=== PATIENT | female | born 1970 | race Caucasian/White ===

== ENCOUNTER → 2016-12-28 | Outpatient (CLI) | payer OTHER ==
[~2016-12-28] MED LIST: ATV/1 PO; BUSP15TA70 PO; BUSP1TAB46 PO; LORA-741 PO; SUMA50TA15 PO; SUMA5SPR5
[2016-12-28 17:36] LABS: MANUAL MICROSCOPIC REQUIRED? NO; REVIEW REQ? NO; URINE APPEARANCE CLEAR (CLEAR); URINE BILIRUBIN NEG (NEG); URINE COLOR YELLOW; URINE NITRITE NEG (NEG); URINE PH 7.5 (4.5-7.5); URINE SPECIFIC GRAVITY 1.015 (1.000-1.030); UROBILINOGEN NEG (NEG)
== END | disposition home or self-care (01) ==
LOC: C.LABBFT 13:48
PROVIDERS: ATTEND Internal Medicine
DX: R39.9 Unspecified symptoms and signs involving the genitourinary system (principal)

== ENCOUNTER → 2017-03-02 | Outpatient (CLI) | payer OTHER ==
[2017-03-02 16:46] LABS: HEMATOCRIT 37.6 % (37-47); MEAN CELL VOLUME 83.4 fL (80-100); MEAN CORPUSCULAR HEMOGLOBIN 26.8 pg (25-34); MEAN CORPUSCULAR HGB CONC 32.2 g/dl (32-36); PLATELET COUNT 336 K/uL (130-400); RED BLOOD COUNT 4.51 M/uL (4.2-5.4); WHITE BLOOD COUNT 9.85 K/uL (4.8-10.8)
[2017-03-02 17:04] LABS: ALT/SGPT 19 U/L (12-78); AST/SGOT 14 U/L (15-37); BLOOD UREA NITROGEN 17 mg/dl (7-18); BUN/CREATININE RATIO 24.4 (10-20); CALCIUM 8.7 mg/dl (8.5-10.1); CARBON DIOXIDE 27 mmol/L (21-32); CHLORIDE 107 mmol/L (98-107); CHOLESTEROL 191 mg/dl (0-200); GLUCOSE 126 mg/dl (70-99); POTASSIUM 3.7 mmol/L (3.5-5.1); SODIUM 140 mmol/L (136-145)
[2017-03-02 17:15] LABS: ALKALINE PHOSPHATASE 66 U/L (45-117); CHOLESTEROL/HDL RATIO 4.1; HDL CHOLESTEROL 47 mg/dl; LDL CHOLESTEROL CALCULATED 116 mg/dl; TRIGLYCERIDES 140 mg/dl (0-150); VERY LOW DENSITY LIPOPROT CALC 28 mg/dl
== END | disposition home or self-care (01) ==
LOC: C.LABBFT 14:19
PROVIDERS: ATTEND Physician Assistant Medical
DX: R53.83 Other fatigue (principal); Z11.59 Encounter for screening for other viral diseases; Z13.6 Encounter for screening for cardiovascular disorders

== ENCOUNTER 2017-08-21 14:50 | Emergency (ER) | payer OTHER ==
[~2017-08-21] VITALS: Ht 160 cm; Wt 66.3 kg
[~2017-08-21 14:50] MED LIST changes: -ATV/1 PO; -BUSP15TA70 PO; -BUSP1TAB46 PO; -SUMA5SPR5
[2017-08-21 14:55] VITALS: TEMP 36.9; Ht 160 cm; Wt 66.3 kg
[2017-08-21] MEDS ORDERED: PROCHLORPERAZINE 5 MG/ML 2 ML VIAL IV STA (15:05)
[2017-08-21] MEDS ORDERED: DiphenhydrAMINE HCL 50 MG/ML VIAL IV STA (15:05)
[2017-08-21] MEDS ORDERED: DEXAMETHASONE SOD INJ 4 MG/ML VIAL IV STA (15:05)
[2017-08-21] MEDS ORDERED: KETOROLAC TROMETHAMINE 30 MG/ML VIAL IV STA (15:05)
[2017-08-21 15:38] LABS: BASO % 0.1 %; BASO ABS # 0.02 K/uL (0-0.2); COMPLETE YES; EOS % 0.1 %; HEMATOCRIT 34.1 % (37-47); IG% 0.2 %; LYMPH % 8.1 %; LYMPH ABS # 1.29 K/uL (1.2-3.4); MEAN CELL VOLUME 82.2 fL (80-100); MEAN CORPUSCULAR HGB CONC 32.8 g/dl (32-36); MEAN PLATELET VOLUME 10.2 fL (7.4-10.4); MONO % 5.4 %; NEUT % 86.1 %; PLATELET COUNT 300 K/uL (130-400); RED BLOOD COUNT 4.15 M/uL (4.2-5.4); WHITE BLOOD COUNT 15.99 K/uL (4.8-10.8)
[2017-08-21 15:58] LABS: BUN/CREATININE RATIO 21.4 (10-20); CALCIUM 8.9 mg/dl (8.5-10.1); CREATININE 0.62 mg/dl (0.60-1.20); POTASSIUM 3.6 mmol/L (3.5-5.1)
--- NOTE | 2017-08-21 16:05 | DIAGNOSTIC IMAGING REPORT ---
HEAD WITHOUT CONTRAST (CT) CLINICAL HISTORY: 46 years-old Female presenting with Evaluate for hemorrhage or pathology, headache. TECHNIQUE: Multidetector CT imaging of the head was performed without the use of intravenous contrast. IV contrast: None. A dose lowering technique was used consistent with the principles of ALARA (as low as reasonably achievable). COMPARISON: None. CT DOSE (mGy.cm): The estimated cumulative dose is 537.48 mGy.cm. FINDINGS: [employer] topogram: Unremarkable. Acute subarachnoid hemorrhage in the suprasellar cistern with extension into the prepontine and interpeduncular regions. This may have a slight predilection for the right side in the region of the right carotid terminus. No parenchymal hematoma. Ventricles and sulci normal in size. Brain parenchyma normal in appearance with preserved spain-white differentiation. No mass effect or midline shift. No acute territorial infarct. Paranasal sinuses and mastoid air cells clear. Calvarium intact. IMPRESSION: 1. Acute subarachnoid hemorrhage in the suprasellar cistern. In the absence of trauma, this is highly suspicious for ruptured aneurysm in the region of the [place], possibly in the region of the right carotid terminus. Further evaluation with CTA of the head and/or angiography recommended. 2. These critical findings were discussed with Dr. Muro by Dr. Salinas at 4:00 PM on 08/21/2017. Electronically signed by: Rafy Salinas M.D. 08/21/2017 4:03 PM Dictated Date/Time: 08/21/2017 3:57 PM
[2017-08-21] MEDS ORDERED: BUSP15TA70 PO (16:11)
[2017-08-21] MEDS ORDERED: SUMA5SPR5 (16:11)
[2017-08-21] MEDS ORDERED: ATV/1 PO (16:11)
[2017-08-21] MEDS ORDERED: BUSP1TAB46 PO (16:11)
--- NOTE | 2017-08-21 16:26 | DIAGNOSTIC IMAGING REPORT ---
CHEST ONE VIEW PORTABLE CLINICAL HISTORY: Headache. COMPARISON STUDY: No previous studies for comparison. FINDINGS: Lung volumes are normal. Lungs are clear. No pneumothorax or pleural effusion is present. Pulmonary vascularity is normal. Cardiomediastinal silhouette is normal. IMPRESSION: No acute cardiopulmonary findings. Electronically signed by: Santy Archibald M.D. 08/21/2017 4:24 PM Dictated Date/Time: 08/21/2017 4:23 PM
[2017-08-21] MEDS ORDERED: OPTIRAY 320 IV PRN (16:30)
[2017-08-21] MEDS ORDERED: NIMODIPINE 30 MG CAP PO STA (16:34)
[2017-08-21] MEDS ORDERED: LORAZEPAM 2 MG/ML 1 ML VIAL IV STA (16:41)
--- NOTE | 2017-08-21 17:11 | DIAGNOSTIC IMAGING REPORT ---
HEAD ANGIO WITH CONTRAST CLINICAL HISTORY: 46 years-old Female presenting with subarachnoid hemorrhage, concern for aneurysm. TECHNIQUE: Multidetector CT angiography of the head was performed after the administration of intravenous contrast. 3-D volumetric and/or maximum intensity projection (MIP) images were subsequently reconstructed for review. IV contrast: 93 mL of Optiray 320. A dose lowering technique was used consistent with the principles of ALARA (as low as reasonably achievable). COMPARISON: CT head performed earlier the same day. CT DOSE (mGy.cm): The estimated cumulative dose is 272.45 mGycm. FINDINGS: Bee Tender topogram: Unremarkable. 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 The aneurysm appears to have a narrow neck measuring approximately 1 mm and has a neck to dome height of 3 mm (series 2 image 47). There may be a blister aneurysm arising from the posterior aspect of the right carotid terminus (series 2 image 46 and 47). This measures 1 to 2 mm in height. Although the right posterior communicating artery is not well visualized, this could alternatively represent an infundibulum. No other aneurysm is evident. Overall image quality is slightly degraded by the timing of the contrast bolus with venous opacification. Anterior circulation otherwise demonstrates patent intracranial portions of the internal carotid arteries, anterior and middle cerebral arteries, and anterior communicating artery. The posterior circulation demonstrates codominant vertebral arteries, which contribute to the basilar artery. Bilateral posterior inferior cerebellar, superior cerebellar, and posterior cerebral arteries patent. Anterior inferior cerebellar arteries not well visualized. Posterior indicating artery is also not well visualized. Cortical veins and dural venous sinuses patent. IMPRESSION: 1. 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 Electronically signed by: Rafy Salinas M.D. 08/21/2017 5:10 PM Dictated Date/Time: 08/21/2017 4:59 PM
[2017-08-21] MEDS ORDERED: LORAZEPAM 1 MG TAB SL STA (17:47)
--- NOTE | 2017-08-21 17:57 | EMERGENCY ROOM VISIT NOTE ---
History Report prepared by Rafita: Christina Oliver Under the Supervision of: Dr. Jorje Muro D.O. First contact with patient: 15:01 Chief Complaint: HEADACHE Stated Complaint: NECK AND SPINE PAIN History of Present Illness The patient is a 46 year old female who presents to the Emergency Room with complaints of a worsening headache for the past 2.5 hours. The patient was taking a shower this afternoon when she started to develop a migraine headache. She has a history of migraines. She states that her pain started to radiate down her neck, into her back, and across her shoulders. She states that this is not typical of her migraines headaches. She felt like she was going to pass out of from the pain. She states, "I couldn't see straight." The patient rates her current pain as a 10/10 in severity. She is also experiencing nausea. She did not take her Imitrex POLE MAKER. Source of History: patient Onset: 2.5 hours Position: head Symptom Intensity: 10/10 Quality: other (radiating) Timing: worsening Associated Symptoms: + neck pain, + nausea, + back pain Review of Systems See HPI for pertinent positives & negatives. A total of 10 systems reviewed and were otherwise negative. Past Medical & Surgical Medical Problems: (1) Anxiety disorder, unspecified (2) Migraine (3) Opioid dependence in remission Family History Patient reports no known family medical history. Social History Smoking Status: Current Every Day Smoker Marital Status: single Housing Status: lives with family Occupation Status: employed Current/Historical Medications Scheduled Buspirone Hcl (Buspirone Hcl), 7.5 MG PO BID Lorazepam (Ativan), 1 MG PO Q6H Scheduled PRN Sumatriptan (Imitrex), 1 SPRAY NA UD PRN for Migraine Sumatriptan Succinate (Imitrex), 50 MG PO UD PRN for Migraine Allergies Coded Allergies: Sulfa Drugs (Unverified Allergy, Mild, 09/21/15) Uncoded Allergies: OPIATES (Allergy, Unknown, Unknown, 08/21/17) PT only stated that Opiates are bad for her Physical Exam Vital Signs Date Time Temp Pulse Resp B/P (MAP) Pulse Ox O2 Delivery O2 Flow Rate FiO2 08/21/17 17:41 87 16 127/65 97 Room Air 08/21/17 17:12 76 159/82 99 Room Air 08/21/17 16:52 78 168/89 98 Room Air 08/21/17 16:28 81 150/85 97 Room Air 08/21/17 14:55 36.9 89 18 138/99 99 Room Air Physical Exam VITAL SIGNS: were reviewed as above. GENERAL:Non-toxic in appearance. SKIN: Warm dry and pink. HEAD: Normocephalic and atraumatic. OROPHARYNX: Is clear and moist NECK: Supple without lymphadenopathy or meningismus. LUNGS: clear. HEART: Regular rate and rhythm. ABDOMEN: Soft and nontender. EXTREMITIES: Warm and well perfused. NEUROLOGICALLY: Awake alert and oriented without focal deficit. Cranial nerves 2 -12 are intact. There is no pronator drift. Cerebellar testing is within normal limits. There is no nystagmus. There is no facial droop. Speech is clear. Vision is grossly normal. MUSCULOSKELETAL: Good muscle tone. No evidence of trauma. Medical Decision & Procedures ER Provider Diagnostic Interpretation: Radiology results as stated below per my review and radiologist interpretation: HEAD WITHOUT CONTRAST (CT) CLINICAL HISTORY: 46 years-old Female presenting with Evaluate for hemorrhage or pathology, headache. TECHNIQUE: Multidetector CT imaging of the head was performed without the use of intravenous contrast. IV contrast: None. A dose lowering technique was used consistent with the principles of ALARA (as low as reasonably achievable). COMPARISON: None. CT DOSE (mGy.cm): The estimated cumulative dose is 537.48 mGy.cm. FINDINGS: Hospitality Specialist topogram: Unremarkable. Acute subarachnoid hemorrhage in the suprasellar cistern with extension into the prepontine and interpeduncular regions. This may have a slight predilection for the right side in the region of the right carotid terminus. No parenchymal hematoma. Ventricles and sulci normal in size. Brain parenchyma normal in appearance with preserved spain-white differentiation. No mass effect or midline shift. No acute territorial infarct. Paranasal sinuses and mastoid air cells clear. Calvarium intact. IMPRESSION: 1. Acute subarachnoid hemorrhage in the suprasellar cistern. In the absence of trauma, this is highly suspicious for ruptured aneurysm in the region of the [place], possibly in the region of the right carotid terminus. Further evaluation with CTA of the head and/or angiography recommended. 2. These critical findings were discussed with Dr. Muro by Dr. Salinas at 4:00 PM on 08/21/2017. Electronically signed by: Rafy Salinas M.D. 08/21/2017 4:03 PM Dictated Date/Time: 08/21/2017 3:57 PM CHEST ONE VIEW PORTABLE CLINICAL HISTORY: Headache. COMPARISON STUDY: No previous studies for comparison. FINDINGS: Lung volumes are normal. Lungs are clear. No pneumothorax or pleural effusion is present. Pulmonary vascularity is normal. Cardiomediastinal silhouette is normal. IMPRESSION: No acute cardiopulmonary findings. Electronically signed by: Santy Archibald M.D. 08/21/2017 4:24 PM Dictated Date/Time: 08/21/2017 4:23 PM HEAD ANGIO WITH CONTRAST CLINICAL HISTORY: 46 years-old Female presenting with subarachnoid hemorrhage, concern for aneurysm. TECHNIQUE: Multidetector CT angiography of the head was performed after the administration of intravenous contrast. 3-D volumetric and/or maximum intensity projection (MIP) images were subsequently reconstructed for review. IV contrast: 93 mL of Optiray 320. A dose lowering technique was used consistent with the principles of ALARA (as low as reasonably achievable). COMPARISON: CT head performed earlier the same day. CT DOSE (mGy.cm): The estimated cumulative dose is 272.45 mGycm. FINDINGS: Hospitality Specialist topogram: Unremarkable. 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 The aneurysm appears to have a narrow neck measuring approximately 1 mm and has a neck to dome height of 3 mm (series 2 image 47). There may be a blister aneurysm arising from the posterior aspect of the right carotid terminus (series 2 image 46 and 47). This measures 1 to 2 mm in height. Although the right posterior communicating artery is not well visualized, this could alternatively represent an infundibulum. No other aneurysm is evident. Overall image quality is slightly degraded by the timing of the contrast bolus with venous opacification. Anterior circulation otherwise demonstrates patent intracranial portions of the internal carotid arteries, anterior and middle cerebral arteries, and anterior communicating artery. The posterior circulation demonstrates codominant vertebral arteries, which contribute to the basilar artery. Bilateral posterior inferior cerebellar, superior cerebellar, and posterior cerebral arteries patent. Anterior inferior cerebellar arteries not well visualized. Posterior indicating artery is also not well visualized. Cortical veins and dural venous sinuses patent. IMPRESSION: 1. 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 Electronically signed by: Rafy Salinas M.D. 08/21/2017 5:10 PM Dictated Date/Time: 08/21/2017 4:59 PM Laboratory Results 08/21/17 15:20 Red Blood Count 4.15, Mean Corpuscular Volume 82.2, Mean Corpuscular Hemoglobin 27.0, Mean Corpuscular Hemoglobin Concent 32.8, Mean Platelet Volume 10.2, Neutrophils (%) (Auto) 86.1, Lymphocytes (%) (Auto) 8.1, Monocytes (%) (Auto) 5.4, Eosinophils (%) (Auto) 0.1, Basophils (%) (Auto) 0.1, Neutrophils # (Auto) 13.78, Lymphocytes # (Auto) 1.29, Monocytes # (Auto) 0.86, Eosinophils # (Auto) 0.01, Basophils # (Auto) 0.02 08/21/17 15:20 Test 08/21/17 15:20 White Blood Count 15.99 K/uL (4.8-10.8) Red Blood Count 4.15 M/uL (4.2-5.4) Hemoglobin 11.2 g/dL (12.0-16.0) Hematocrit 34.1 % (37-47) Mean Corpuscular Volume 82.2 fL (80-100) Mean Corpuscular Hemoglobin 27.0 pg (25-34) Mean Corpuscular Hemoglobin Concent 32.8 g/dl (32-36) Platelet Count 300 K/uL (130-400) Mean Platelet Volume 10.2 fL (7.4-10.4) Neutrophils (%) (Auto) 86.1 % Lymphocytes (%) (Auto) 8.1 % Monocytes (%) (Auto) 5.4 % Eosinophils (%) (Auto) 0.1 % Basophils (%) (Auto) 0.1 % Neutrophils # (Auto) 13.78 K/uL (1.4-6.5) Lymphocytes # (Auto) 1.29 K/uL (1.2-3.4) Monocytes # (Auto) 0.86 K/uL (0.11-0.59) Eosinophils # (Auto) 0.01 K/uL (0-0.5) Basophils # (Auto) 0.02 K/uL (0-0.2) RDW Standard Deviation 43.0 fL (36.4-46.3) RDW Coefficient of Variation 14.2 % (11.5-14.5) Immature Granulocyte % (Auto) 0.2 % Immature Granulocyte # (Auto) 0.03 K/uL (0.00-0.02) Anion Gap 11.0 mmol/L (3-11) Est Creatinine Clear Calc Drug Dose 104.8 ml/min Estimated GFR () 126.2 Estimated GFR (Non- 108.9 BUN/Creatinine Ratio 21.4 (10-20) Calcium Level 8.9 mg/dl (8.5-10.1) Laboratory results as stated above per my review. Medications Administered Medications (Trade) Dose Ordered Sig/Dane Route Start Time Stop Time Status Last Admin Dose Admin Ketorolac Tromethamine (Toradol Inj) 30 mg NOW STAT IV 08/21/17 15:05 08/21/17 15:08 DC 08/21/17 15:30 30 MG Prochlorperazine Edisylate (Compazine Inj) 10 mg NOW STAT IV 08/21/17 15:05 08/21/17 15:08 DC 08/21/17 15:33 10 MG Diphenhydramine HCl (Benadryl Inj) 25 mg NOW STAT IV 08/21/17 15:05 08/21/17 15:08 DC 08/21/17 15:29 25 MG Dexamethasone Sodium Phosphate (Decadron Inj) 10 mg NOW STAT IV 08/21/17 15:05 08/21/17 15:08 DC 08/21/17 15:31 10 MG Nimodipine (Nimotop Cap) 60 mg NOW STAT PO 08/21/17 16:34 08/21/17 16:35 DC 08/21/17 16:55 60 MG ED Course 1501: Previous medical records were reviewed. The patient was evaluated in room B7. A complete history and physical examination was performed. 1505: Decadron 10 mg IV, Benadryl 25 mg IV, Compazine 10 mg IV, Toradol 30 mg IV 1559: I discussed the patient's radiology results with Dr. Salinas of radiology. 1605: I called [facility] at this time. I requested to speak with neurosurgery and am waiting for a call back. 1612: At this time I spoke with Dr. Hammond, the process tech. We discussed the patient's case. He recommended CTA and accepted the patient for transfer to their facility. 1634: Nimodipine 60 mg PO 1641: Ativan 1 mg IV Medical Decision Differential includes: Acute intracranial bleed, trauma, meningitis, encephalitis, increased intracranial pressure, mass or mass effect, facial or dental infection, temporal arteritis, CVA, TIA, acute hypertensive emergency, sinusitis, and carbon monoxide exposure. This is a 46-year-old female who presents to the ED with a chief complaint of a bad headache. The patient reports that she has had a headache for the past 4 days. She reports that she doesn't a history of migraines. She normally takes Imitrex and has tried her Imitrex over the past couple of days. Her symptoms seem to improve somewhat until today while she was taking a shower. She bent over and suddenly had a severe headache that radiated down her neck. She had some associated nausea and vomited here once during her ED stay. The patient reports that this is different than her previous migraine headaches. She is not had any fevers or chills or trauma. Her vital signs are normal. Her physical exam was unremarkable. She does not appear to be in much distress. She is awake, alert and oriented. The patient does report taking Motrin daily for her headache over the past several days. CT scan of the brain reveals findings concerning for subarachnoid hemorrhage. Blood work was unremarkable including a CBC and PRP. Chest x-ray was negative for acute disease. I spoke with Dr. Hammond from [facility] intensive care unit for transfer. They recommended a CT scan angiogram of the head and are working on a bed. CT angiogram revealed a 3 mm aneurysmal changes as noted above. The patient did receive the motor pain 60 mg by mouth. She was given Ativan sublingual. Her vital signs remained stable during her ED stay. Medication Reconcilliation Current Medication List: was personally reviewed by me Blood Pressure Screening Patient's blood pressure: Normal blood pressure Consults Time Called: 1559 Consulting Physician: Dr. Salinas Returned Call: 1559 I discussed the patient's radiology results with Dr. Salinas of radiology. Additional Consults: Time Called: 1605 Consulted Physician: Dr. Hammond Returned Call: [phone] Additional Comments: At this time I spoke with Dr. Hammond, the process tech. We discussed the patient's case. He recommended CTA and accepted the patient for transfer to their facility. Impression Primary Impression: SAH (subarachnoid hemorrhage) Critical Care I have personally spent 35 minutes of critical care time in the direct management of this patient. This includes bedside care, interpretation of diagnostic studies, and testing, discussion with consultants, patient, and family members, and other required patient management activities. This 30 minutes is in excess of all separately billable procedures. Scribe Attestation The scribe's documentation has been prepared under my direction and personally reviewed by me in its entirety. I confirm that the note above accurately reflects all work, treatment, procedures, and medical decision making performed by me. Departure Information Dispostion Transfer Acute Care Facility Referrals Tre Torers M.D. (PCP) Patient Instructions My [facility]
[2017-08-21 19:45] VITALS: BP 154/85; PULSE 91; O2SAT 98
== END 2017-08-21 19:46 | disposition short-term general hospital (02) ==
LOC: EDBD 14:50 → C.EDB 14:51
DX: I60.9 Nontraumatic subarachnoid hemorrhage, unspecified (principal); G43.909 Migraine, unspecified, not intractable, without status migrainosus; F41.9 Anxiety disorder, unspecified; F11.21 Opioid dependence, in remission; F17.200 Nicotine dependence, unspecified, uncomplicated

== ENCOUNTER → 2018-01-11 | Outpatient (CLI) | payer OTHER ==
[~2018-01-11] MED LIST changes: +ATV/1 PO; +BUSP1TAB46 PO; -LORA-741 PO; +OPTIRAY 320 IV PRN; +SUMA5SPR5
--- NOTE | 2018-01-11 14:44 | DIAGNOSTIC IMAGING REPORT ---
CT ANGIOGRAM OF THE BRAIN COMBO CLINICAL HISTORY: Follow-up aneurysm. COMPARISON STUDY: CT angiogram of the brain dated 08/21/2017. TECHNIQUE: Unenhanced axial CT scan of the brain is performed. Subsequently, following the IV administration of 94 cc of Optiray 320, CT angiogram of the brain was performed from the skull base to the vertex. Images are reviewed in the axial, sagittal, and coronal planes. 3-D MIPS images are created and assessed. IV contrast was administered without complication. A dose lowering technique was utilized adhering to the principles of ALARA. Examination is modestly degraded by streak artifact from the metallic aneurysm coil. CT DOSE: 633.00 mGy.cm FINDINGS: Brain parenchyma: There is minimal subcortical and periventricular microhepatic change. The brain parenchyma is otherwise normal in appearance. There is no hemorrhage, mass effect, or evidence of acute territorial ischemia by CT criteria. There is no evidence of enhancing mass lesion on the angiogram phase images. No extra-axial fluid collection is seen. [place]wan-white matter differentiation is preserved. Ventricles, sulci, and cisterns: Normal in configuration. CT angiogram of the brain: The internal carotid arteries are widely patent, as are the anterior and middle cerebral arteries. The vertebrobasilar system and posterior cerebral arteries are widely patent. The vertebral arteries are codominant. Aneurysm coils are present within an aneurysm at the basilar tip. No significant residual aneurysm is identified. There is no high-grade stenosis or focal vessel cutoff identified throughout the intracranial circulation. A 1 mm aneurysm is again questioned in the right supraclinoid internal carotid artery, best seen on image #168. Dural sinuses: Clear as visualized. Orbits: The bony orbits are intact. The orbital contents are normal as visualized. Sinuses and mastoids: Trace mucosal thickening is seen in the left maxillary antrum. The remaining visualized paranasal sinuses are clear. The mastoid air cells are well pneumatized. Calvarium: Unremarkable. IMPRESSION: 1. There is no hemorrhage, mass effect, or evidence of acute territorial ischemia by CT criteria. 2. There are postprocedural changes from coiling of an aneurysm at the basilar tip, new from 08/21/2017. 3. A 1 mm aneurysm is again questioned in the supraclinoid right internal carotid artery. Electronically signed by: Deny Rivero M.D. 01/11/2018 2:43 PM Dictated Date/Time: 01/11/2018 2:29 PM
== END | disposition home or self-care (01) ==
LOC: C.CTS 13:48
PROVIDERS: ATTEND Psychiatry & Neurology Neurology
DX: I67.1 Cerebral aneurysm, nonruptured (principal)